=== PATIENT | male | born 1955 | race Caucasian/White ===

== ENCOUNTER 2017-04-19 10:39 | Inpatient (IN) | payer BC ==
[~2017-04-19 10:39] MED LIST: Bisacodyl 5 MG Tab PO PRN; Lactated Ringers 1,000 ML IV SCH; Lidocaine 1%/Sod Bicarbonate in NS 8.4% 1 ML Syringe IV PRN; Magnesium Hydroxide 400 MG/5 ML Susp 30 ML Cup PO PRN; Morphine 2 MG/ML Syringe IVPUSH PRN; Naloxone 0.4 MG/ML SDV IVPUSH PRN; Ondansetron 4 MG/2 ML SDV IVPUSH PRN; Sennosides 8.6 MG Tab PO PRN; Sodium Chloride 0.9% 10 ML Syringe FLUSH PRN
--- NOTE | 2017-04-19 12:57 | PCM.PREANE ---
Preanesthetic Assessment - Procedure Proposed Procedure: Right Total Knee Arthroplasty - Anesthesia/Transfusion/Family Hx Anesthesia History: No Prior Anesthesia Family History of Anesthesia Reaction: No Transfusion History: Prior Transfusion Without Reaction - Review of Systems General: No Symptoms Pulmonary: No Symptoms Cardiovascular: No Symptoms Gastrointestinal: No Symptoms Neurological: No Symptoms Other: Reports: None - Physical Assessment NPO Status Date: 04/18/17 NPO Status Time: 22:00 O2 Sat by Pulse Oximetry: 97 Respiratory Rate: 20 Vital Signs: Last Vital Signs Temp 36.7 C 04/19/17 11:45 Pulse 78 04/19/17 11:45 Resp 20 04/19/17 11:45 BP 140/94 H 04/19/17 11:45 Pulse Ox 97 04/19/17 11:45 Height: 1.78 m Weight: 73.028 kg ASA Class: 2 Mental Status: Alert & Oriented x3 Airway Class: Mallampati = 2 Dentition: Reports: Normal Dentition, Missing Tooth/Teeth (right lower tooth missing ) Thyro-Mental Finger Breadths: 2 Mouth Opening Finger Breadths: 5 ROM/Head Extension: Full Lungs: Clear to Auscultation, Normal Respiratory Effort Cardiovascular: Regular Rate, Regular Rhythm - Lab Values: Laboratory Last Values PT 10.8 SECONDS (8.0-13.0) 04/19/17 12:10 INR 0.99 04/19/17 12:10 MRSA (PCR) Negative 03/31/17 13:43 - Allergies Allergies/Adverse Reactions: Allergies Allergy/AdvReac Type Severity Reaction Status Date / Time No Known Allergies Allergy Verified 04/19/17 12:30 - Blood Blood Available: No - Anesthesia Plan Pre-Op Medication Ordered: None - Acknowledgements Anesthesia Type Planned: Spinal Pt an Appropriate Candidate for the Planned Anesthesia: Yes Alternatives and Risks of Anesthesia Discussed w Pt/Guardian: Yes Pt/Guardian Understands and Agrees with Anesthesia Plan: Yes PreAnesthesia Questionnaire HEENT History: Reports: Other (See Below) Other HEENT History: wears glasses Cardiovascular History: Reports: High Cholesterol, Hypertension Respiratory History: Reports: None Gastrointestinal History: Reports: GERD Genitourinary History: Reports: None 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 Musculoskeletal History: Reports: Osteoarthritis, Other (See Below) Other Musculoskeletal History: joint pain Neurological History: Reports: None Psychiatric History: Reports: None Endocrine/Metabolic History: Reports: None Hematologic History: Reports: Anemia, Blood Transfusion(s), Iron Deficiency Immunologic History: Reports: None Oncologic (Cancer) History: Reports: None Dermatologic History: Reports: None - Past Surgical History Head Surgeries/Procedures: Reports: None Cardiovascular Surgical History: Reports: None Respiratory Surgical History: Reports: None GI Surgical History: Reports: Colonoscopy, EGD Female Surgical History: Reports: None Male Surgical History: Reports: None Endocrine Surgical History: Reports: None Neurological Surgical History: Reports: None Musculoskeletal Surgical History: Reports: Knee Replacement, Other (See Below) Oncologic Surgical History: Reports: None Dermatological Surgical History: Reports: None - SUBSTANCE USE Smoking Status *Q: Former Smoker Recreational Drug Use History: No - HOME MEDS Home Medications: Home Meds Lisinopril 10 mg PO DAILY 05/08/16 [History] Pantoprazole Sodium [Protonix] 40 mg PO DAILY 05/08/16 [History] - CURRENT (IN HOUSE) MEDS Current Meds: Current Medications Bisacodyl (Dulcolax) 5 mg PO DAILY PRN PRN Reason: Constipation Cyclobenzaprine HCl (Flexeril) 10 mg PO TID PRN PRN Reason: Spasms Docusate Sodium (Colace) 100 mg PO BID THAD Famotidine (Pepcid) 20 mg PO Q12H [facility] Lactated Ringer's (Ringers, Lactated) 1,000 mls @ 125 mls/hr IV ASDIRECTED [facility] Last Admin: 04/19/17 12:15 Dose: 125 mls/hr Cefazolin Sodium/Dextrose 2 gm (/ Premix) 50 mls @ 100 mls/hr IV Q8H [facility] Stop: 04/20/17 00:14 Lidocaine/Sodium Bicarbonate (Buffered Lidocaine 1% In Ns 8.4%) 0.25 ml IV ONETIME PRN PRN Reason: Prior to IV Start Last Admin: 04/19/17 12:14 Dose: 0.25 ml Magnesium Hydroxide (Milk Of Magnesia) 30 ml PO BID PRN PRN Reason: Constipation Morphine Sulfate (Morphine) 2 mg IVPUSH Q2H PRN PRN Reason: Breakthrough Pain Naloxone HCl (Narcan) 0.1 mg IVPUSH Q5M PRN PRN Reason: Oversedation Ondansetron HCl (Zofran) 4 mg IVPUSH Q6H PRN PRN Reason: Nausea/Vomiting Oxycodone/Acetaminophen (Percocet 325-5 Mg) 1 - 2 tab PO Q4H PRN PRN Reason: Pain Rivaroxaban (Xarelto) 10 mg PO DAILY THAD Senna (Senna) 8.6 mg PO BID PRN PRN Reason: Constipation Sodium Chloride (Saline Flush) 10 ml FLUSH ASDIRECTED PRN PRN Reason: Keep Vein Open Stop: 04/19/17 18:00 Discontinued Medications Morphine Sulfate 8 mg/Epinephrine HCl 0.3 mg/Cefuroxime Sodium 750 mg/Ketorolac Tromethamine 30 mg/Sodium Chloride 27.9 ml 0 mg .XX ONETIME ONE Stop: 04/19/17 07:22
[2017-04-19] MEDS ORDERED: Lidocaine 1% 4 ML ONE (14:15)
[2017-04-19] MEDS ORDERED: Morphine PF 10 MG/10 ML SDV ONE (14:15)
[2017-04-19] MEDS ORDERED: Midazolam 1 MG/ML 2 ML SDV ONE (14:15)
[2017-04-19] MEDS ORDERED: Propofol 200 MG/20 ML SDV ONE ×3 (14:15→15:44)
[2017-04-19] MEDS ORDERED: Lactated Ringers 1,000 ML ONE ×2 (14:28→15:33)
[2017-04-19] MEDS: Bupivacaine 0.25% 10 ML SDV ONE ×2 (14:59→15:37)
[2017-04-19] MEDS: Morphine 8 MG, EPINEPHrine 0.3 MG, Cefuroxime 750 MG, Ketorolac 30 MG, Sodium Chloride ... ONE ×10 (15:00→15:36)
[2017-04-19] MEDS: ceFAZolin 1 GM Vial ONE ×2 (15:00→15:30)
[2017-04-19] MEDS: Iodine/Sodium Iodide 2% Tincture 30 ML Bottle ONE ×2 (15:00→15:28)
[2017-04-19] MEDS: Vancomycin 1 GM SDV ONE ×2 (15:01→15:35)
[2017-04-19] MEDS ORDERED: ePHEDrine 50 MG/ML SDV ONE (15:08)
--- NOTE | 2017-04-19 16:37 | PCM.POSTAN ---
POST ANESTHESIA ASSESSMENT - MENTAL STATUS Mental Status: Alert - VITAL SIGNS Pulse Rate: 90 SaO2: 97 Resp Rate: 29 Blood Pressure: 113/71 Temperature: 36.4 C - RESPIRATORY Respiratory Status: Respiratory Rate WNL, Airway Patent, O2 Saturation Stable - CARDIOVASCULAR CV Status: Pulse Rate WNL, Blood Pressure Stable - GASTROINTESTINAL GI Status: No Symptoms - PAIN Pain Score: 0 - POST OP HYDRATION Hydration Status: Adequate & Stable
[2017-04-19] MEDS ORDERED: Diphtheria,Pertussis(Acell),Tetanus Vaccine 0.5 ML SDV IM ONE (18:30)
--- NOTE | 2017-04-19 18:48 | CR ---
Right knee: AP and lateral views of the right knee were obtained. Comparison: No prior right knee exam. Knee prosthesis is seen. Components are aligned. Soft tissue air is noted from the surgical procedure. Underlying bony structures appear intact. Impression: 1. Satisfactory postoperative radiographic appearance of recently placed right knee prosthesis. Diagnostic code #2
[2017-04-19] MEDS: ceFAZolin 2 GM in Premix Bag 1 BAG IV SCH (19:47)
[2017-04-19] MEDS: Famotidine 20 MG Tab PO SCH ×2 (21:10→22:01)
[2017-04-19] MEDS: Docusate Sodium 100 MG Cap PO SCH (22:01)
--- NOTE | 2017-04-19 23:04 | PCM.CONS ---
H&P History of Present Illness - General Date of Service: 04/19/17 Admit Problem/Dx: Admission Diagnosis/Problem Admission Diagnosis/Problem Osteoarthritis of knee Source of Information: Patient, Old Records, Provider, RN, Other (surgical notes ) History Limitations: Reports: No Limitations - History of Present Illness Initial Comments - Free Text/Narative: Werner Richmond (Bill) is a 62 yo male patient of Dr. Pascual who is post-operative day 0 of right TKA. Hospital medicine was consulted for post-operative medical care. At this time he is resting comfortably in bed. Pain is controlled and he denies any at this time. He denies any chest pain, shortness of breath, palpitations, nausea, or vomiting. He carries a history of: HLD, HTN, GERD, osteoarthritis, iron deficiency anemia, and prior left TKA. . He is a full code. His primary care provider is Phyllis Santamaria PA-C. Right Anterior Knee Pain Score (Numeric/FACES): 0 - Related Data Allergies/Adverse Reactions: Allergies Allergy/AdvReac Type Severity Reaction Status Date / Time No Known Allergies Allergy Verified 04/19/17 12:30 Home Medications: Home Meds Lisinopril 10 mg PO DAILY 05/08/16 [History] Pantoprazole Sodium [Protonix] 40 mg PO DAILY 05/08/16 [History] Past Medical History HEENT History: Reports: Other (See Below) Other HEENT History: wears glasses Cardiovascular History: Reports: High Cholesterol, Hypertension Respiratory History: Reports: None Gastrointestinal History: Reports: GERD Genitourinary History: Reports: None 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 - Past Surgical History Head Surgeries/Procedures: Reports: None HEENT Surgical History: Reports: None Cardiovascular Surgical History: Reports: None Respiratory Surgical History: Reports: None GI Surgical History: Reports: Colonoscopy, EGD Male Surgical History: Reports: None Endocrine Surgical History: Reports: None Neurological Surgical History: Reports: None Musculoskeletal Surgical History: Reports: Knee Replacement, Other (See Below) Other Musculoskeletal Surgeries/Procedures:: Previous left knee replacement May 2016. Oncologic Surgical History: Reports: None Dermatological Surgical History: Reports: None Social & Family History - Family History Family Medical History: Noncontributory Cardiac: Reports: Hypertension Neurological: Reports: Migraines Other Oncologic Family History: Malignant neoplastic disease - Tobacco Use Smoking Status *Q: Never Smoker Used Tobacco, but Quit: Yes Month Tobacco Last Used: 1989 Second Hand Smoke Exposure: No - Caffeine Use Caffeine Use: Reports: Coffee, Soda - Recreational Drug Use Recreational Drug Use: No Drug Use in Last 12 Months: No H&P Review of Systems - Review of Systems: Review Of Systems: See Below General: Reports: No Symptoms HEENT: Reports: No Symptoms Pulmonary: Reports: No Symptoms Cardiovascular: Reports: No Symptoms Gastrointestinal: Reports: No Symptoms Genitourinary: Reports: No Symptoms Musculoskeletal: Reports: No Symptoms Skin: Reports: No Symptoms Psychiatric: Reports: No Symptoms Neurological: Reports: No Symptoms Hematologic/Lymphatic: Reports: No Symptoms Immunologic: Reports: No Symptoms Review of Systems Comment:: patient reports no concerns at this time. He is denying any knee pain currently. He reports good sensation throughout legs. Exam - Exam Exam: See Below - Vital Signs Vital Signs: Last Vital Signs Temp 97.3 F 04/19/17 18:08 Pulse 61 04/19/17 21:32 Resp 12 04/19/17 18:08 BP 129/72 04/19/17 21:32 Pulse Ox 97 04/19/17 21:32 Weight: 161 lb - Exam Quality Assessment: DVT Prophylaxis General: Alert, Oriented, Cooperative HEENT: Conjunctiva Clear, EACs Clear, EOMI, Hearing Intact, Mucosa Moist & [place] , Nares Patent, Normal Nasal Septum, Posterior Pharynx Clear, PERRLA Neck: Supple, Trachea Midline. No: JVD, Thyromegaly Lungs: Clear to Auscultation, Normal Respiratory Effort Cardiovascular: Regular Rate, Regular Rhythm GI/Abdominal Exam: Normal Bowel Sounds, Soft, Non-Tender, No Organomegaly, No Distention, No Abnormal Bruit, No Mass, Pelvis Stable (Male) Exam: Deferred Rectal (Males) Exam: Deferred Back Exam: Normal Inspection, Full Range of Motion, NT Extremities: No Pedal Edema, Normal Capillary Refill, Other (Garrett bandage around right leg. bandages dry and intact) Peripheral Pulses: 2+: Radial (L), Radial (R), Posterior Tibial (L), Dorsalis Pedis (L) Skin: Warm, Dry, Intact Neurological: Cranial Nerves Intact (grossly) Neuro Extensive - Mental Status: Alert, Oriented x3, Normal Mood/Affect, Normal Cognition, Memory Intact Neuro Extensive - Motor, Sensory, Reflexes: CN II-XII Intact (grossly) Psychiatric: Alert, Normal Affect, Normal Mood - Patient Data Lab Results Last 24 hrs: Laboratory Results - last 24 hr 04/19/17 Range/Units 12:10 PT 10.8 (8.0-13.0) SECONDS INR 0.99 Consult PN Assessment/Plan POD#: 0 Procedures: Procedures ASSAY OF TROPONIN QUANT (05/19/16) COMPLETE CBC W/AUTO DIFF WBC (05/22/16) COMPREHEN METABOLIC PANEL (05/22/16) CREATINE MB FRACTION (05/19/16) ROUTINE VENIPUNCTURE (05/22/16) (1) Status post total knee replacement SNOMED Code(s): 4778922011129, 2661514768734 Code(s): Z96.659 - PRESENCE OF UNSPECIFIED ARTIFICIAL KNEE JOINT Priority: High Current Visit: Yes Qualifiers: Laterality: right Qualified Code(s): Z96.651 - Presence of right artificial knee joint (2) Osteoarthritis SNOMED Code(s): 026245346 Code(s): M19.90 - UNSPECIFIED OSTEOARTHRITIS, UNSPECIFIED SITE Priority: High Current Visit: Yes Qualifiers: Osteoarthritis location: knee Osteoarthritis type: primary Laterality: right Qualified Code(s): M17.11 - Unilateral primary osteoarthritis, right knee (3) HLD (hyperlipidemia) SNOMED Code(s): 26653921 Code(s): E78.5 - HYPERLIPIDEMIA, UNSPECIFIED Priority: Low Current Visit : No Qualifiers: Hyperlipidemia type: unspecified Qualified Code(s): E78.5 - Hyperlipidemia , unspecified (4) Anemia SNOMED Code(s): 629194575 Code(s): D64.9 - ANEMIA, UNSPECIFIED Current Visit: Yes Qualifiers: Anemia type: iron deficiency Iron deficiency anemia type: unspecified iron deficiency Qualified Code(s): D50.9 - Iron deficiency anemia, unspecified (5) GERD (gastroesophageal reflux disease) SNOMED Code(s): 491894074 Code(s): K21.9 - GASTRO-ESOPHAGEAL REFLUX DISEASE WITHOUT ESOPHAGITIS Priority: Low Current Visit: No Qualifiers: Esophagitis presence: esophagitis presence not specified Qualified Code(s) : K21.9 - Gastro-esophageal reflux disease without esophagitis (6) HTN (hypertension) SNOMED Code(s): 28896924 Code(s): I10 - ESSENTIAL (PRIMARY) HYPERTENSION Priority: Low Current Visit: No Qualifiers: Hypertension type: unspecified Qualified Code(s): I10 - Essential (primary ) hypertension Problem List Initiated/Reviewed/Updated: Yes Plan: I/P: Acute: S/P right total knee arthroplasty - post-operative day 0 -DVT prophylaxis and pain management per primary care team -PT/OT -IS/RT -Monitor oxygen saturation -Titrate oxygen as needed -Vital signs stable -Pre-operative Hgb was 14.1 Osteoarthritis of right knee -Pain management per primary care team Chronic: HLD HTN GERD Osteoarthritis Iron deficiency anemia prior left TKA Plan: SW/CM for discharge planning GI prophylaxis Home medications as indicated Other orders as listed above Routine AM labs He is a full code. His PCP is Phyllis Santamaria PA-C here at [facility] Thank you for allowing us to participate in the care of this patient!!
[2017-04-20] MEDS: Acetaminophen/oxyCODONE 325-5 MG Tab PO PRN ×3 (00:21→09:59)
[2017-04-20] MEDS: ceFAZolin 2 GM in Premix Bag 1 BAG IV SCH ×2 (03:16→11:44)
[2017-04-20] MEDS: Cyclobenzaprine 10 MG Tab PO PRN ×2 (03:24→06:46)
[2017-04-20] MEDS ORDERED: Pantoprazole 40 MG Tab.CR PO SCH (07:00)
[2017-04-20] MEDS ORDERED: Rivaroxaban 10 MG Tab PO SCH (09:00)
[2017-04-20] MEDS ORDERED: Lisinopril 10 MG Tab PO SCH (09:00)
[2017-04-20] MEDS: Docusate Sodium 100 MG Cap PO SCH (10:00)
--- NOTE | 2017-04-20 12:19 | PCM.CONSN ---
- General Info Date of Service: 04/20/17 Admission Dx/Problem (Free Text): Admission Diagnosis/Problem Admission Diagnosis/Problem Osteoarthritis of knee POD #1 TKA Doing well, pain controlled Ambulating well with PT Hgb is 10.5 today VSS Functional Status: Reports: Pain Controlled, Tolerating Diet, Ambulating, Urinating, Incentive Spirometry. Denies: New Symptoms - Review of Systems General: Reports: No Symptoms HEENT: Reports: No Symptoms Pulmonary: Reports: No Symptoms Cardiovascular: Reports: No Symptoms Gastrointestinal: Reports: No Symptoms Genitourinary: Reports: No Symptoms Musculoskeletal: Reports: Leg Pain Skin: Reports: No Symptoms Neurological: Reports: No Symptoms Psychiatric: Reports: No Symptoms - Patient Data Vitals - Most Recent: Last Vital Signs Temp 97.9 F 04/20/17 07:50 Pulse 66 04/20/17 07:50 Resp 18 04/20/17 07:50 BP 126/75 04/20/17 10:00 Pulse Ox 96 04/20/17 03:17 Weight - Most Recent: 171 lb 3.2 oz I&O - Last 24 Hours: Intake & Output 04/19/17 04/20/17 04/20/17 22:59 06:59 14:59 Intake Total 460 900 100 Output Total 200 275 Balance 260 625 100 Lab Results Last 24 Hours: Laboratory Results - last 24 hr 04/19/17 04/20/17 04/20/17 Range/Units 12:10 06:33 06:33 WBC 8.99 (4.23-9.07) K/mm3 RBC 3.46 L (4.63-6.08) M/mm3 Hgb 10.5 L (13.7-17.5) gm/L Hct 31.2 L (40.1-51.0) % MCV 90.2 (79.0-92.2) fl MCH 30.3 (25.7-32.2) pg MCHC 33.7 (32.2-35.5) g/dl RDW Std Deviation 39.3 (35.1-43.9) fL Plt Count 175 (163-337) K/mm3 MPV 10.6 (9.4-12.3) fl PT 10.8 (8.0-13.0) SECONDS INR 0.99 Sodium 136 (136-145) mEq/L Potassium 4.1 (3.5-5.1) mEq/L Chloride 103 (98-107) mEq/L Carbon Dioxide 26 (21-32) mEq/L Anion Gap 11.1 (5-15) BUN 13 (7-18) mg/dL Creatinine 0.9 (0.7-1.3) mg/dL Est Cr Clr Drug Dosing 86.74 mL/min Estimated GFR (MDRD) > 60 (>60) mL/min BUN/Creatinine Ratio 14.4 (14-18) Glucose 157 H (80-115) mg/dL Calcium 7.9 L (8.5-10.1) mg/dL Total Bilirubin 0.9 (0.2-1.0) mg/dL AST 22 (15-37) U/L ALT 23 (16-63) U/L Alkaline Phosphatase 39 L (46-116) U/L Total Protein 5.8 L (6.4-8.2) g/dl Albumin 3.0 L (3.4-5.0) g/dl Globulin 2.8 gm/dL Albumin/Globulin Ratio 1.1 (1-2) Med Orders - Current: Current Medications Bisacodyl (Dulcolax) 5 mg PO DAILY PRN PRN Reason: Constipation Cyclobenzaprine HCl (Flexeril) 10 mg PO TID PRN PRN Reason: Spasms Last Admin: 04/20/17 06:46 Dose: 10 mg Docusate Sodium (Colace) 100 mg PO BID REPLACED BY [facility] Last Admin: 04/20/17 10:00 Dose: 100 mg Lisinopril (Prinivil) 10 mg PO DAILY REPLACED BY [facility] Last Admin: 04/20/17 10:00 Dose: 10 mg Magnesium Hydroxide (Milk Of Magnesia) 30 ml PO BID PRN PRN Reason: Constipation Morphine Sulfate (Morphine) 2 mg IVPUSH Q2H PRN PRN Reason: Breakthrough Pain Naloxone HCl (Narcan) 0.1 mg IVPUSH Q5M PRN PRN Reason: Oversedation Ondansetron HCl (Zofran) 4 mg IVPUSH Q6H PRN PRN Reason: Nausea/Vomiting Last Admin: 04/20/17 05:40 Dose: 4 mg Oxycodone/Acetaminophen (Percocet 325-5 Mg) 1 - 2 tab PO Q4H PRN PRN Reason: Pain Last Admin: 04/20/17 09:59 Dose: 2 tab Pantoprazole Sodium (Protonix) 40 mg PO DAILY@0700 REPLACED BY [facility] Last Admin: 04/20/17 06:46 Dose: 40 mg Senna (Senna) 8.6 mg PO BID PRN PRN Reason: Constipation Discontinued Medications Bupivacaine HCl (Sensorcaine-Mpf 0.25%) Confirm Administered Dose 30 ml .ROUTE .STK-MED ONE Stop: 04/19/17 13:02 Last Admin: 04/19/17 15:37 Dose: 30 ml Cefazolin Sodium (Ancef) Confirm Administered Dose 2 gm .ROUTE .STK-MED ONE Stop: 04/19/17 13:02 Last Admin: 04/19/17 15:30 Dose: 2 gm Morphine Sulfate 8 mg/Epinephrine HCl 0.3 mg/Cefuroxime Sodium 750 mg/Ketorolac Tromethamine 30 mg/Sodium Chloride 27.9 ml 0 mg .XX ONETIME ONE Stop: 04/19/17 07:22 Last Admin: 04/19/17 15:36 Dose: 788.3 mg Ephedrine Sulfate (Ephedrine Sulfate) Confirm Administered Dose 50 mg .ROUTE .STK-MED ONE Stop: 04/19/17 15:09 Famotidine (Pepcid) 20 mg PO Q12H REPLACED BY [facility] Last Admin: 04/19/17 22:01 Dose: 20 mg Lactated Ringer's (Ringers, Lactated) 1,000 mls @ 125 mls/hr IV ASDIRECTED REPLACED BY [facility] Last Admin: 04/19/17 12:15 Dose: 125 mls/hr Cefazolin Sodium/Dextrose 2 gm (/ Premix) 50 mls @ 100 mls/hr IV Q8H REPLACED BY [facility] Stop: 04/20/17 11:29 Last Admin: 04/20/17 11:44 Dose: 100 mls/hr Lidocaine HCl (Xylocaine-Mpf 1%) Confirm Administered Dose 4 mls @ as directed .ROUTE .STK-MED ONE Stop: 04/19/17 14:16 Lactated Ringer's (Ringers, Lactated) Confirm Administered Dose 1,000 mls @ as directed .ROUTE .STK-MED ONE Stop: 04/19/17 14:29 Lactated Ringer's (Ringers, Lactated) Confirm Administered Dose 1,000 mls @ as directed .ROUTE .STK-MED ONE Stop: 04/19/17 15:34 Iodine (Iodine 2% Mild Tincture) Confirm Administered Dose 30 ml .ROUTE .STK- MED ONE Stop: 04/19/17 13:03 Last Admin: 04/19/17 15:28 Dose: 30 ml Lidocaine/Sodium Bicarbonate (Buffered Lidocaine 1% In Ns 8.4%) 0.25 ml IV ONETIME PRN PRN Reason: Prior to IV Start Last Admin: 04/19/17 12:14 Dose: 0.25 ml Midazolam HCl (Versed 1 Mg/Ml) Confirm Administered Dose 2 mg .ROUTE .STK-MED ONE Stop: 04/19/17 14:16 Morphine Sulfate (Duramorph Pf) Confirm Administered Dose 10 mg .ROUTE .STK-MED ONE Stop: 04/19/17 14:16 Propofol (Diprivan 20 Ml) Confirm Administered Dose 400 mg .ROUTE .STK-MED ONE Stop: 04/19/17 14:16 Propofol (Diprivan 20 Ml) Confirm Administered Dose 200 mg .ROUTE .STK-MED ONE Stop: 04/19/17 15:22 Propofol (Diprivan 20 Ml) Confirm Administered Dose 200 mg .ROUTE .STK-MED ONE Stop: 04/19/17 15:45 Rivaroxaban (Xarelto) 10 mg PO DAILY THAD Sodium Chloride (Saline Flush) 10 ml FLUSH ASDIRECTED PRN PRN Reason: Keep Vein Open Stop: 04/19/17 18:00 Tranexamic Acid (Cyklokapron) Confirm Administered Dose 1,000 mg .ROUTE .STK- MED ONE Stop: 04/19/17 13:01 Last Admin: 04/19/17 15:38 Dose: 1,000 mg Vancomycin HCl (Vancomycin) Confirm Administered Dose 1 gm .ROUTE .STK-MED ONE Stop: 04/19/17 13:02 Last Admin: 04/19/17 15:35 Dose: 1 gm - Exam Quality Assessment: DVT Prophylaxis General: Alert, Oriented, Cooperative, No Acute Distress HEENT: Pupils Equal, EOMI, Mucous Membr. Moist/[place] Neck: Supple Lungs: Clear to Auscultation, Normal Respiratory Effort Cardiovascular: Regular Rate, Regular Rhythm GI/Abdominal Exam: Normal Bowel Sounds, Soft, Non-Tender (Male) Exam: Deferred Extremities: Other (Teds, SCD, ice to rt knee) Peripheral Pulses: 2+: Dorsalis Pedis (L), Dorsalis Pedis (R) Wound/Incisions: Dressing Dry and Intact Neurological: No New Focal Deficit Psy/Mental Status: Alert, Normal Affect, Normal Mood Consult PN Assessment/Plan POD#: 1 Procedures: Procedures ASSAY OF TROPONIN QUANT (05/19/16) COMPLETE CBC W/AUTO DIFF WBC (05/22/16) COMPREHEN METABOLIC PANEL (05/22/16) CREATINE MB FRACTION (05/19/16) ROUTINE VENIPUNCTURE (05/22/16) (1) Status post total knee replacement SNOMED Code(s): 0476183459426, 2331092544411 Code(s): Z96.659 - PRESENCE OF UNSPECIFIED ARTIFICIAL KNEE JOINT Priority: High Current Visit: Yes Qualifiers: Laterality: right Qualified Code(s): Z96.651 - Presence of right artificial knee joint (2) Osteoarthritis SNOMED Code(s): 818171886 Code(s): M19.90 - UNSPECIFIED OSTEOARTHRITIS, UNSPECIFIED SITE Priority: High Current Visit: Yes Qualifiers: Osteoarthritis location: knee Osteoarthritis type: primary Laterality: right Qualified Code(s): M17.11 - Unilateral primary osteoarthritis, right knee (3) Anemia SNOMED Code(s): 268598809 Code(s): D64.9 - ANEMIA, UNSPECIFIED Priority: Medium Current Visit: Yes Qualifiers: Anemia type: iron deficiency Iron deficiency anemia type: unspecified iron deficiency Qualified Code(s): D50.9 - Iron deficiency anemia, unspecified (4) GERD (gastroesophageal reflux disease) SNOMED Code(s): 799665833 Code(s): K21.9 - GASTRO-ESOPHAGEAL REFLUX DISEASE WITHOUT ESOPHAGITIS Priority: Low Current Visit: No Qualifiers: Esophagitis presence: esophagitis presence not specified Qualified Code(s) : K21.9 - Gastro-esophageal reflux disease without esophagitis (5) HLD (hyperlipidemia) SNOMED Code(s): 80834723 Code(s): E78.5 - HYPERLIPIDEMIA, UNSPECIFIED Priority: Low Current Visit : No Qualifiers: Hyperlipidemia type: unspecified Qualified Code(s): E78.5 - Hyperlipidemia , unspecified (6) HTN (hypertension) SNOMED Code(s): 24529031 Code(s): I10 - ESSENTIAL (PRIMARY) HYPERTENSION Priority: Low Current Visit: No Qualifiers: Hypertension type: unspecified Qualified Code(s): I10 - Essential (primary ) hypertension Problem List Initiated/Reviewed/Updated: Yes Plan: I/P: Acute: S/P right total knee arthroplasty - post-operative day 1 -DVT prophylaxis and pain management per primary care team -PT/OT -IS/RT -Monitor oxygen saturation;-Titrate oxygen as needed -Vital signs stable -Pre-operative Hgb was 14.1; today hgb is 10.5 Osteoarthritis of right knee -Pain management per primary care team Chronic: HLD HTN GERD Osteoarthritis Iron deficiency anemia prior left TKA Plan: SW/CM for discharge planning---OK from Hospitalist standpoint for DC home today ; doing well. GI prophylaxis Home medications as indicated Other orders as listed above Routine AM labs He is a full code. His PCP is Phyllis Santamaria PA-C here at [facility]
[2017-04-20] MEDS ORDERED: Rivaroxaban 10 MG Tab PO ONE (12:29)
[2017-04-20 13:40] VITALS: BP 117/63
--- NOTE | 2017-04-20 13:49 | PCM48HPAN ---
Post Anesthesia Note - EVALUATION WITHIN 48HRS OF ANESTHETIC Vital Signs in Normal Range: Yes Patient Participated in Evaluation: Yes Respiratory Function Stable: Yes Airway Patent: Yes Cardiovascular Function Stable: Yes Hydration Status Stable: Yes Pain Control Satisfactory: Yes Nausea and Vomiting Control Satisfactory: Yes Mental Status Recovered: Yes - COMMENTS/OBSERVATIONS Free Text/Narrative:: Patient resting comfortably. No complications noted.
[2017-04-20] MEDS ORDERED: Diphtheria,Pertussis(Acell),Tetanus Vaccine 0.5 ML SDV IM ONE (15:11)
--- NOTE | 2017-04-22 16:36 | PCM.SURGPN ---
- General Info Date of Service: 04/20/17 POD#: 1 Functional Status: Reports: Pain Controlled, Tolerating Diet, Ambulating, Urinating, Incentive Spirometry, Other (The pt feels prepared for discharge to home.) - Patient Data Vitals - Most Recent: Last Vital Signs Temp 98.4 F 04/20/17 12:46 Pulse 97 04/20/17 12:46 Resp 14 04/20/17 12:46 BP 117/63 04/20/17 12:46 Pulse Ox 94 L 04/20/17 12:46 Weight - Most Recent: 171 lb 3.2 oz Med Orders - Current: Current Medications Discontinued Medications Bisacodyl (Dulcolax) 5 mg PO DAILY PRN PRN Reason: Constipation Bupivacaine HCl (Sensorcaine-Mpf 0.25%) Confirm Administered Dose 30 ml .ROUTE .STK-MED ONE Stop: 04/19/17 13:02 Last Admin: 04/19/17 15:37 Dose: 30 ml Cefazolin Sodium (Ancef) Confirm Administered Dose 2 gm .ROUTE .STK-MED ONE Stop: 04/19/17 13:02 Last Admin: 04/19/17 15:30 Dose: 2 gm Morphine Sulfate 8 mg/Epinephrine HCl 0.3 mg/Cefuroxime Sodium 750 mg/Ketorolac Tromethamine 30 mg/Sodium Chloride 27.9 ml 0 mg .XX ONETIME ONE Stop: 04/19/17 07:22 Last Admin: 04/19/17 15:36 Dose: 788.3 mg Cyclobenzaprine HCl (Flexeril) 10 mg PO TID PRN PRN Reason: Spasms Last Admin: 04/20/17 06:46 Dose: 10 mg Diphtheria/Tetanus/Acell Pertussis (Adacel) 0.5 ml IM .ONCE ONE Stop: 04/20/17 15:12 Docusate Sodium (Colace) 100 mg PO BID THAD Last Admin: 04/20/17 10:00 Dose: 100 mg Ephedrine Sulfate (Ephedrine Sulfate) Confirm Administered Dose 50 mg .ROUTE .STK-MED ONE Stop: 04/19/17 15:09 Famotidine (Pepcid) 20 mg PO Q12H THAD Last Admin: 04/19/17 22:01 Dose: 20 mg Lactated Ringer's (Ringers, Lactated) 1,000 mls @ 125 mls/hr IV ASDIRECTED [facility] Last Admin: 04/19/17 12:15 Dose: 125 mls/hr Cefazolin Sodium/Dextrose 2 gm (/ Premix) 50 mls @ 100 mls/hr IV Q8H [facility] Stop: 04/20/17 11:29 Last Admin: 04/20/17 11:44 Dose: 100 mls/hr Lidocaine HCl (Xylocaine-Mpf 1%) Confirm Administered Dose 4 mls @ as directed .ROUTE .STK-MED ONE Stop: 04/19/17 14:16 Lactated Ringer's (Ringers, Lactated) Confirm Administered Dose 1,000 mls @ as directed .ROUTE .STK-MED ONE Stop: 04/19/17 14:29 Lactated Ringer's (Ringers, Lactated) Confirm Administered Dose 1,000 mls @ as directed .ROUTE .STK-MED ONE Stop: 04/19/17 15:34 Iodine (Iodine 2% Mild Tincture) Confirm Administered Dose 30 ml .ROUTE .STK- MED ONE Stop: 04/19/17 13:03 Last Admin: 04/19/17 15:28 Dose: 30 ml Lidocaine/Sodium Bicarbonate (Buffered Lidocaine 1% In Ns 8.4%) 0.25 ml IV ONETIME PRN PRN Reason: Prior to IV Start Last Admin: 04/19/17 12:14 Dose: 0.25 ml Lisinopril (Prinivil) 10 mg PO DAILY [facility] Last Admin: 04/20/17 10:00 Dose: 10 mg Magnesium Hydroxide (Milk Of Magnesia) 30 ml PO BID PRN PRN Reason: Constipation Midazolam HCl (Versed 1 Mg/Ml) Confirm Administered Dose 2 mg .ROUTE .STK-MED ONE Stop: 04/19/17 14:16 Morphine Sulfate (Morphine) 2 mg IVPUSH Q2H PRN PRN Reason: Breakthrough Pain Morphine Sulfate (Duramorph Pf) Confirm Administered Dose 10 mg .ROUTE .STK-MED ONE Stop: 04/19/17 14:16 Naloxone HCl (Narcan) 0.1 mg IVPUSH Q5M PRN PRN Reason: Oversedation Ondansetron HCl (Zofran) 4 mg IVPUSH Q6H PRN PRN Reason: Nausea/Vomiting Last Admin: 04/20/17 05:40 Dose: 4 mg Oxycodone/Acetaminophen (Percocet 325-5 Mg) 1 - 2 tab PO Q4H PRN PRN Reason: Pain Last Admin: 04/20/17 09:59 Dose: 2 tab Pantoprazole Sodium (Protonix) 40 mg PO DAILY@0700 THAD Last Admin: 04/20/17 06:46 Dose: 40 mg Propofol (Diprivan 20 Ml) Confirm Administered Dose 400 mg .ROUTE .STK-MED ONE Stop: 04/19/17 14:16 Propofol (Diprivan 20 Ml) Confirm Administered Dose 200 mg .ROUTE .STK-MED ONE Stop: 04/19/17 15:22 Propofol (Diprivan 20 Ml) Confirm Administered Dose 200 mg .ROUTE .STK-MED ONE Stop: 04/19/17 15:45 Rivaroxaban (Xarelto) 10 mg PO DAILY [facility] Rivaroxaban (Xarelto) 10 mg PO ONETIME ONE Stop: 04/20/17 12:30 Last Admin: 04/20/17 12:47 Dose: 10 mg Senna (Senna) 8.6 mg PO BID PRN PRN Reason: Constipation Sodium Chloride (Saline Flush) 10 ml FLUSH ASDIRECTED PRN PRN Reason: Keep Vein Open Stop: 04/19/17 18:00 Tranexamic Acid (Cyklokapron) Confirm Administered Dose 1,000 mg .ROUTE .STK- MED ONE Stop: 04/19/17 13:01 Last Admin: 04/19/17 15:38 Dose: 1,000 mg Vancomycin HCl (Vancomycin) Confirm Administered Dose 1 gm .ROUTE .STK-MED ONE Stop: 04/19/17 13:02 Last Admin: 04/19/17 15:35 Dose: 1 gm - Exam Wound/Incisions: Dressing Dry and Intact General: Alert, Cooperative, No Acute Distress Lungs: Normal Respiratory Effort Extremities: Other (NVS intact for BLE. Millie's negative for BLE. Independent SLR RLE.) - Problem List Review Problem List Initiated/Reviewed/Updated: Yes - Assessment Assessment (Free Text/Narrative):: POD#1 - right TKA - Plan Plan (Free Text/Narrative):: 1. Discharge to home today. 2. The pt has met inpatient P.T. goals. 3. Xarelto x 2 wks and then transition to ASA (per PCP instruction). 4. Hgb 10.5. The pt's case was discussed with Dr. Pascual.
--- NOTE | 2017-04-22 16:38 | PCM.DCSUM1 ---
Discharge Summary - Hospital Course Brief History: Werner is a 62 yo male who underwent right TKA with Dr. Pascual on 04-19-2017. The procedure was completed under spinal anesthesia. The pt tolerated the procedure well and was admitted to the Medical-Surgical Unit. Medical management was provided by the Hospitalist service. The pt's Hospital course was uneventful. The pt's Hgb on POD#1 was 10.5. On POD#1, Xarelto 10mg PO daily was initiated for VTE prophylaxis. SCDs and TEDs were also ordered. A Mepilex dressing was placed at the incision site at the time of surgery and remained clean and dry. The pt participated in P.T. and O.T. and progressed well. The pt was allowed to WBAT. On POD#1, the pt was deemed appropriate to discharge to home with his . - Discharge Data Discharge Date: 04/20/17 Discharge Disposition: Home, Self-Care 01 Condition: Good - Patient Summary/Data Consults: Consultations 04/19/17 07:31 Consult to Physician [CONS] Routine OT Evaluation and Treatment [CONS] Routine 04/19/17 07:37 PT Evaluation and Treatment [CONS] Routine - Patient Instructions Diet: Usual Diet as Tolerated Activity: Apply Ice, As Tolerated, Elevate Extremity, Full Weight Bearing Driving: Do Not Drive Showering/Bathing: May Shower Wound/Incision Care: Keep Operative Site/Wound Site Clean and Dry, Do NOT Change Dressing Notify Provider of: Fever, Increased Pain, Swelling and Redness, Drainage, Nausea and/or Vomiting Other/Special Instructions: Please get up and moving around every hour while awake. This helps to prevent blood clots. Also, please use the Xarelto blood thinner medication daily to help limit the risk of blood clots. The Xarelto is for 2 wks and THEN you will transition to ASPIRIN 325mg twice daily (after the 2 wks). Please use your walker and have help with mobility as needed. Please elevate the limb to decrease swelling. Please place ice to the surgical site often. Please use the pain medication as needed. The medication may cause drowsiness and/or constipation. You could use a stool softener like docusate sodium or Colace twice daily and/or a laxative like Miralax for constipation. Please contact your primary care provider for further instructions if you are constipated. Please schedule for P.T. Please leave the dressing in place until follow-up at the Clinic. Please wear the DESHAWN hose. You may remove these at night. Please call the Clinic with questions or concerns - [phone]. - Discharge Plan Prescriptions/Med Rec: Acetaminophen/oxyCODONE [Percocet 325-5 MG] 1 - 2 tab PO Q4H PRN #60 tablet PRN Reason: Pain Cyclobenzaprine [Flexeril] 10 mg PO Q8H PRN #40 tablet PRN Reason: muscle spasms Docusate Sodium [Colace] 100 mg PO BID #30 cap Famotidine [Pepcid] 20 mg PO BID #60 tablet Rivaroxaban [Xarelto] 10 mg PO DAILY #14 tablet Home Medications: Home Meds Lisinopril 10 mg PO DAILY 05/08/16 [History] Pantoprazole Sodium [Protonix] 40 mg PO DAILY 05/08/16 [History] Acetaminophen/oxyCODONE [Percocet 325-5 MG] 1 - 2 tab PO Q4H PRN #60 tablet [Rx] Cyclobenzaprine [Flexeril] 10 mg PO Q8H PRN #40 tablet 04/20/17 [Rx] Docusate Sodium [Colace] 100 mg PO BID #30 cap 04/20/17 [Rx] Famotidine [Pepcid] 20 mg PO BID #60 tablet 04/20/17 [Rx] Rivaroxaban [Xarelto] 10 mg PO DAILY #14 tablet 04/20/17 [Rx] Patient Handouts: Rivaroxaban oral tablets, Total Knee Replacement, Care After , Mpks-up-Helg, Total Knee Replacement, [id number], Knee Rehabilitation Guidelines Following Surgery Referrals: Charlotte Medina PA-C [Physician Laboratory Equipment Cleaner] - (Please see Charlotte Arechiga on Wednesday04/27/17 at 8:30 AM and on Wednesday04/24/17 at 8:30 AM. ) - Patient Data Vitals - Most Recent: Last Vital Signs Temp 98.4 F 04/20/17 12:46 Pulse 97 04/20/17 12:46 Resp 14 04/20/17 12:46 BP 117/63 04/20/17 12:46 Pulse Ox 94 L 04/20/17 12:46 Weight - Most Recent: 171 lb 3.2 oz Med Orders - Current: Current Medications Discontinued Medications Bisacodyl (Dulcolax) 5 mg PO DAILY PRN PRN Reason: Constipation Bupivacaine HCl (Sensorcaine-Mpf 0.25%) Confirm Administered Dose 30 ml .ROUTE .STK-MED ONE Stop: 04/19/17 13:02 Last Admin: 04/19/17 15:37 Dose: 30 ml Cefazolin Sodium (Ancef) Confirm Administered Dose 2 gm .ROUTE .STK-MED ONE Stop: 04/19/17 13:02 Last Admin: 04/19/17 15:30 Dose: 2 gm Morphine Sulfate 8 mg/Epinephrine HCl 0.3 mg/Cefuroxime Sodium 750 mg/Ketorolac Tromethamine 30 mg/Sodium Chloride 27.9 ml 0 mg .XX ONETIME ONE Stop: 04/19/17 07:22 Last Admin: 04/19/17 15:36 Dose: 788.3 mg Cyclobenzaprine HCl (Flexeril) 10 mg PO TID PRN PRN Reason: Spasms Last Admin: 04/20/17 06:46 Dose: 10 mg Diphtheria/Tetanus/Acell Pertussis (Adacel) 0.5 ml IM .ONCE ONE Stop: 04/20/17 15:12 Docusate Sodium (Colace) 100 mg PO BID REPLACED BY [facility] Last Admin: 04/20/17 10:00 Dose: 100 mg Ephedrine Sulfate (Ephedrine Sulfate) Confirm Administered Dose 50 mg .ROUTE .STK-MED ONE Stop: 04/19/17 15:09 Famotidine (Pepcid) 20 mg PO Q12H REPLACED BY [facility] Last Admin: 04/19/17 22:01 Dose: 20 mg Lactated Ringer's (Ringers, Lactated) 1,000 mls @ 125 mls/hr IV ASDIRECTED REPLACED BY [facility] Last Admin: 04/19/17 12:15 Dose: 125 mls/hr Cefazolin Sodium/Dextrose 2 gm (/ Premix) 50 mls @ 100 mls/hr IV Q8H REPLACED BY [facility] Stop: 04/20/17 11:29 Last Admin: 04/20/17 11:44 Dose: 100 mls/hr Lidocaine HCl (Xylocaine-Mpf 1%) Confirm Administered Dose 4 mls @ as directed .ROUTE .STK-MED ONE Stop: 04/19/17 14:16 Lactated Ringer's (Ringers, Lactated) Confirm Administered Dose 1,000 mls @ as directed .ROUTE .STK-MED ONE Stop: 04/19/17 14:29 Lactated Ringer's (Ringers, Lactated) Confirm Administered Dose 1,000 mls @ as directed .ROUTE .STK-MED ONE Stop: 04/19/17 15:34 Iodine (Iodine 2% Mild Tincture) Confirm Administered Dose 30 ml .ROUTE .STK- MED ONE Stop: 04/19/17 13:03 Last Admin: 04/19/17 15:28 Dose: 30 ml Lidocaine/Sodium Bicarbonate (Buffered Lidocaine 1% In Ns 8.4%) 0.25 ml IV ONETIME PRN PRN Reason: Prior to IV Start Last Admin: 04/19/17 12:14 Dose: 0.25 ml Lisinopril (Prinivil) 10 mg PO DAILY REPLACED BY [facility] Last Admin: 04/20/17 10:00 Dose: 10 mg Magnesium Hydroxide (Milk Of Magnesia) 30 ml PO BID PRN PRN Reason: Constipation Midazolam HCl (Versed 1 Mg/Ml) Confirm Administered Dose 2 mg .ROUTE .STK-MED ONE Stop: 04/19/17 14:16 Morphine Sulfate (Morphine) 2 mg IVPUSH Q2H PRN PRN Reason: Breakthrough Pain Morphine Sulfate (Duramorph Pf) Confirm Administered Dose 10 mg .ROUTE .STK-MED ONE Stop: 04/19/17 14:16 Naloxone HCl (Narcan) 0.1 mg IVPUSH Q5M PRN PRN Reason: Oversedation Ondansetron HCl (Zofran) 4 mg IVPUSH Q6H PRN PRN Reason: Nausea/Vomiting Last Admin: 04/20/17 05:40 Dose: 4 mg Oxycodone/Acetaminophen (Percocet 325-5 Mg) 1 - 2 tab PO Q4H PRN PRN Reason: Pain Last Admin: 04/20/17 09:59 Dose: 2 tab Pantoprazole Sodium (Protonix) 40 mg PO DAILY@0700 REPLACED BY [facility] Last Admin: 04/20/17 06:46 Dose: 40 mg Propofol (Diprivan 20 Ml) Confirm Administered Dose 400 mg .ROUTE .STK-MED ONE Stop: 04/19/17 14:16 Propofol (Diprivan 20 Ml) Confirm Administered Dose 200 mg .ROUTE .STK-MED ONE Stop: 04/19/17 15:22 Propofol (Diprivan 20 Ml) Confirm Administered Dose 200 mg .ROUTE .STK-MED ONE Stop: 04/19/17 15:45 Rivaroxaban (Xarelto) 10 mg PO DAILY THAD Rivaroxaban (Xarelto) 10 mg PO ONETIME ONE Stop: 04/20/17 12:30 Last Admin: 04/20/17 12:47 Dose: 10 mg Senna (Senna) 8.6 mg PO BID PRN PRN Reason: Constipation Sodium Chloride (Saline Flush) 10 ml FLUSH ASDIRECTED PRN PRN Reason: Keep Vein Open Stop: 04/19/17 18:00 Tranexamic Acid (Cyklokapron) Confirm Administered Dose 1,000 mg .ROUTE .STK- MED ONE Stop: 04/19/17 13:01 Last Admin: 04/19/17 15:38 Dose: 1,000 mg Vancomycin HCl (Vancomycin) Confirm Administered Dose 1 gm .ROUTE .STK-MED ONE Stop: 04/19/17 13:02 Last Admin: 04/19/17 15:35 Dose: 1 gm *Q Meaningful Use (DIS) - VTE *Q VTE Criteria *Q: - Stroke *Q Stroke Criteria *Q: - AMI *Q AMI Criteria *Q:
--- NOTE | 2017-04-27 11:37 | PCM.OPNOTE ---
- General Post-Op/Procedure Note Date of Surgery/Procedure: 04/19/17 Operative Procedure(s): right total knee artrhoplasty Pre Op Diagnosis: right knee osteoarthrosis Post-Op Diagnosis: Same Anesthesia Technique: Local, MAC, Spinal Primary Surgeon: Mohan Pascual Anesthesia Provider: Yolie Yañez Director Medicare Sales: Charlotte Medina Director Medicare Sales: Capri Jaimes EBL in mLs: 250 Complications: None Condition: Good
--- NOTE | 2017-04-27 13:22 | OR ---
DATE OF OPERATION: 04/19/2017 SURGEON: Mohan Pascual MD OPERATION PERFORMED: Right total knee arthroplasty. PREOPERATIVE DIAGNOSIS: Right knee osteoarthrosis. POSTOPERATIVE DIAGNOSIS: Right knee osteoarthrosis. ANESTHESIA: Local MAC with spinal. ANESTHESIA PROVIDER: Yolie Yañez CRNA. ASSISTANTS: Charlotte Medina PA-C and Capri Jaimes LPN. ESTIMATED BLOOD LOSS: 250 mL. COMPLICATIONS: None. CONDITION: Stable. IMPLANTS: 1. Asbury size 6 press-fit PS femur. 2. Myles size 6 press-fit tibia. 3. Asbury size 6 PS X3 9 mm polyethylene. 4. Asbury press-fit 35 x 10 mm asymmetric patella. DESCRIPTION OF PROCEDURE: The patient was identified in the preop holding area. Proper site was marked and identified by the surgeon. The patient was taken back to the operating theater. After adequate anesthesia, the patient's right lower extremity had a nonsterile tourniquet applied and it was then sterilely prepped and draped in the usual sterile fashion. OR timeout was performed. The patient received 2 g IV Ancef. At this time, right lower extremity was exsanguinated. Tourniquet was insufflated to 300 mmHg. Standard medial parapatellar incision was made. Medial parapatellar arthrotomy was created. Deep fibers of the MCL were raised and anterior fat pad was resected. At this time, attention was turned to the patella. Patella measured 25, it was resected to a 15 for a 35 x 10 mm patella. Drill holes were then drilled and found to be in adequate position. The drill was then drilled in the distal femur and the intramedullary distal femoral cutting guide was then placed. 8 mm was resected off the distal femur and was found to be an adequate resection. Sizing guide was placed. It was found to be a size 6 press-fit PS femur that was shown on the implant record at the beginning of this dictation. The drill holes were drilled for the epicondylar axis using Whitesides line and epicondyles as reference. At this time, the 4-in - 1 cutting block was placed. An anterior posterior and anterior and posterior chamfer cuts were then completed. The correct size box cut was then placed and the box cut was completed and found to be an adequate resection. Attention was turned to the tibia. The posterior medial lateral retractors were placed. The extramedullary tibial guide was placed. It was placed in the old footprint of the ACL. It was aligned with the center of the ankle and 0 degrees of slope, 9 mm was then resected off the unaffected lateral side. There was found to be an acceptable reduction. At this time, posterior osteophytes were removed along with medial and lateral meniscus. A trial implant was placed with a correct sized tibia that was mentioned at the beginning of the dictation. A 9 mm trial spacer was then placed. The patient's knee was brought through range of motion. The patella was tracking centrally and was stable to varus and valgus stress. Alignment was found to be roughly at 0 degrees. At this time, cement was mixed on the back table. The tibia was stamped and drilled in proper rotation. The universal tibial base plate was impacted in place. Next, the size 6 press-fit PS femur was impacted into place and 9 mm trial spacer was placed and then 9 mm PS X3 polyethylene was placed. The patient's knee was brought into full extension. The patella was then press-fit in place at this time. Tourniquet was deflated. One liter dilute Betadine solution was irrigated through the knee along with 3 L of pulse lavage irrigation with Ancef. Periarticular injection was then completed. The patient's knee was brought through a range of motion. It was found to be stable to varus valgus stress, the patella was tracking centrally with full range of motion. At this time, a #2 barbed suture was used for closure of the medial parapatellar arthrotomy. Topical tranexamic acid was placed. 2-0 Vicryl was used subcutaneously, a running 3-0 Monocryl was used subcuticularly. The patient tolerated the procedure well and was sent to the PACU in stable condition. MMODAL /[id number] [place]
== END 2017-04-20 15:38 | disposition home or self-care (01) | DRG 302 ==
LOC: JD.MS 11:38 → JD.OB 14:57 → JD.MS 18:14
PROVIDERS: ADMIT Orthopaedic Surgery; ATTEND Orthopaedic Surgery
PROC: 0SRC06Z Replacement of Right Knee Joint with Oxidized Zirconium on Polyethylene Synthetic Substitute, Open Approach (ICD-10-PCS; principal; 2017-04-19)
DX: M17.11 Unilateral primary osteoarthritis, right knee (principal); E78.5 Hyperlipidemia, unspecified; I10 Essential (primary) hypertension; D50.9 Iron deficiency anemia, unspecified; Z96.652 Presence of left artificial knee joint; K21.9 Gastro-esophageal reflux disease without esophagitis
CPT/HCPCS: 01402; 36415; 73560-26-RT; 73560-RT; 80053; 85027; 85610; 87641; 90471; 94762; 97110-GP; 97116-GP; 97161-GP; 97165-GO; 97535-GO; A9270-GY; C1776; J0171; J0690; J0697; J1885; J2250; J2270; J2405; J2704; J3370; J7120

== ENCOUNTER 2017-04-22 17:45 | Emergency (ER) | payer BC ==
[2017-04-22 17:58] VITALS: BP 133/91
[2017-04-22] MEDS ORDERED: Sodium Chloride 0.9% 10 ML Syringe FLUSH PRN (18:18)
--- NOTE | 2017-04-22 18:21 | EDM.PDOC ---
ED HPI GENERAL MEDICAL PROBLEM - General Chief Complaint: Fever Stated Complaint: FEVER AFTER KNEE SURGERY Time Seen by Provider: 04/22/17 18:07 Source of Information: Reports: Patient History Limitations: Reports: No Limitations - History of Present Illness INITIAL COMMENTS - FREE TEXT/NARRATIVE: Patient is a 62-year-old male presents ED complaining of swollen right calf with worsening pain and increased warmth and redness noted. Patient recently had total right knee replacement this past Wednesday by Dr. Pascual. States he's noticed increased swelling to his right lower leg with worsening pain. Especially noted to his right calf. In addition developed a fever of 101.8 today with some chills. Patient took a Percocet approximately 2:30 with relief of fever. Upon arrival patient has no fever present. Currently patient has no additional complaints. Denies any chest pain, shortness of breath, cough, abdominal pain, pain with urination, or any additional complaints. Patient is on xarelto prophylatically for DVT as well full dose adult ASA. Patient has no history of DVT or PE. Treatments BIOMED TECH: Reports: Other (see below) Other Treatments BIOMED TECH: percocet Right Knee Pain Score (Numeric/FACES): 2 - Related Data Allergies Allergy/AdvReac Type Severity Reaction Status Date / Time No Known Allergies Allergy Verified 04/19/17 12:30 Home Meds: Home Meds Lisinopril 10 mg PO DAILY 05/08/16 [History] Pantoprazole Sodium [Protonix] 40 mg PO DAILY 05/08/16 [History] Acetaminophen/oxyCODONE [Percocet 325-5 MG] 1 - 2 tab PO Q4H PRN #60 tablet [Rx] Cyclobenzaprine [Flexeril] 10 mg PO Q8H PRN #40 tablet 04/20/17 [Rx] Docusate Sodium [Colace] 100 mg PO BID #30 cap 04/20/17 [Rx] Famotidine [Pepcid] 20 mg PO BID #60 tablet 04/20/17 [Rx] Rivaroxaban [Xarelto] 10 mg PO DAILY #14 tablet 04/20/17 [Rx] Past Medical History HEENT History: Reports: Other (See Below) Other HEENT History: wears glasses Cardiovascular History: Reports: High Cholesterol, Hypertension Respiratory History: Reports: None Gastrointestinal History: Reports: GERD Genitourinary History: Reports: None [employer] SAL[employer] History: Reports: None Musculoskeletal History: Reports: Osteoarthritis, Other (See Below) Other Musculoskeletal History: joint pain Neurological History: Reports: None Psychiatric History: Reports: None Endocrine/Metabolic History: Reports: None Hematologic History: Reports: Anemia, Blood Transfusion(s), Iron Deficiency Immunologic History: Reports: None Oncologic (Cancer) History: Reports: None Dermatologic History: Reports: None - Infectious Disease History Other Infectious Disease History: Has has Shingles shot in 2016. - Past Surgical History Head Surgeries/Procedures: Reports: None HEENT Surgical History: Reports: None Cardiovascular Surgical History: Reports: None Respiratory Surgical History: Reports: None GI Surgical History: Reports: Colonoscopy, EGD Male Surgical History: Reports: None Endocrine Surgical History: Reports: None Neurological Surgical History: Reports: None Musculoskeletal Surgical History: Reports: Knee Replacement, Other (See Below) Other Musculoskeletal Surgeries/Procedures:: Previous left knee replacement May 2016. right knee repl;acement on Apr 2017 Oncologic Surgical History: Reports: None Social & Family History - Family History Family Medical History: Noncontributory Cardiac: Reports: Hypertension Neurological: Reports: Migraines Other Oncologic Family History: Malignant neoplastic disease - Tobacco Use Smoking Status *Q: Never Smoker Used Tobacco, but Quit: Yes Month Tobacco Last Used: 1989 Second Hand Smoke Exposure: No - Caffeine Use Caffeine Use: Reports: Coffee, Soda - Recreational Drug Use Recreational Drug Use: No Drug Use in Last 12 Months: No ED ROS GENERAL - Review of Systems Review Of Systems: See Below Constitutional: Reports: Fever, Chills, Malaise, Decreased Appetite HEENT: Reports: No Symptoms Respiratory: Reports: No Symptoms Cardiovascular: Reports: No Symptoms, Other (Unable to palpate posterior tibialis and dorsalis pedis. Doppler signals were obtained were strong and brisk.) GI/Abdominal: Reports: No Symptoms : Reports: No Symptoms Musculoskeletal: Reports: Leg Pain, Joint Pain (Right knee), Joint Swelling ( Right knee) Skin: Reports: Other (Status post total right knee replacement with antibiotic impregnated dressing in place. Ecchymosis, increased redness, increased warmth noted to the right knee most likely secondary to inflammatory process with healing. Increased warmth and swelling noted to the posterior calf with pain on palpation.) Neurological: Reports: No Symptoms ED EXAM, GENERAL - Physical Exam Exam: See Below Exam Limited By: No Limitations General Appearance: Alert, WD/WN, No Apparent Distress Ears: Hearing Grossly Normal Nose: Normal Inspection Throat/Mouth: Normal Voice, No Airway Compromise Neck: Normal Inspection, Supple Respiratory/Chest: No Respiratory Distress, Lungs Clear, Normal Breath Sounds, No Accessory Muscle Use, Chest Non-Tender Cardiovascular: Regular Rate, Rhythm, No Murmur Peripheral Pulses: 2+: Radial (L) GI/Abdominal: Normal Bowel Sounds, Soft, Non-Tender, No Organomegaly, No Distention Extremities: Other (Right knee: Antibiotic-impregnated dressing in place. Ecchymosis, increased swelling, and redness to the knee secondary to inflammatory changes status post total bili replacement. Increased swelling and tenderness to the posterior calf with increased warmth noted. Unable to palpate dorsalis pedis and posterior tibialis pulses. Doppler signals were strong and brisk.) Neurological: Alert, Oriented, CN II-XII Intact, Normal Cognition, No Motor/ Sensory Deficits Psychiatric: Normal Affect, Normal Mood Skin Exam: Warm, Dry Course - Vital Signs Last Recorded V/S: Last Vital Signs Temp 98.3 F 04/22/17 17:56 Pulse 129 H 04/22/17 17:56 Resp 20 04/22/17 17:56 BP 133/91 H 04/22/17 17:56 Pulse Ox 97 04/22/17 17:56 - Orders/Labs/Meds Orders: Active Orders 24 hr Category Date Time Status Peripheral IV Care [RC] . DIRECTED Care 04/22/17 18:18 Active Chest 1V Frontal [CR] Stat Exams 04/22/17 18:18 Taken Peripheral IV Insertion Adult [OM.PC] Stat Oth 04/22/17 18:18 Ordered Labs: Laboratory Tests 04/22/17 04/22/17 04/22/17 Range/Units 18:50 18:50 19:20 WBC 9.95 H (4.23-9.07) K/mm3 RBC 2.97 L (4.63-6.08) M/mm3 Hgb 9.0 L (13.7-17.5) gm/L Hct 27.0 L (40.1-51.0) % MCV 90.9 (79.0-92.2) fl MCH 30.3 (25.7-32.2) pg MCHC 33.3 (32.2-35.5) g/dl RDW Std Deviation 39.6 (35.1-43.9) fL Plt Count 206 (163-337) K/mm3 MPV 10.3 (9.4-12.3) fl Neut % (Auto) 79.8 H (34.0-67.9) % Lymph % (Auto) 11.4 L (21.8-53.1) % Gilchrist % (Auto) 8.0 (5.3-12.2) % Eos % (Auto) 0.5 L (0.8-7.0) Baso % (Auto) 0.2 (0.1-1.2) % Neut # (Auto) 7.94 H (1.78-5.38) K/mm3 Lymph # (Auto) 1.13 L (1.32-3.57) K/mm3 Gilchrist # (Auto) 0.80 (0.30-0.82) K/mm3 Eos # (Auto) 0.05 (0.04-0.54) K/mm3 Baso # (Auto) 0.02 (0.01-0.08) K/mm3 Manual Slide Review Abnormal smear Sodium 137 (136-145) mEq/L Potassium 3.6 (3.5-5.1) mEq/L Chloride 102 (98-107) mEq/L Carbon Dioxide 28 (21-32) mEq/L Anion Gap 10.6 (5-15) BUN 16 (7-18) mg/dL Creatinine 1.0 (0.7-1.3) mg/dL Est Cr Clr Drug Dosing 77.61 mL/min Estimated GFR (MDRD) > 60 (>60) mL/min BUN/Creatinine Ratio 16.0 (14-18) Glucose 127 H (80-115) mg/dL Calcium 8.4 L (8.5-10.1) mg/dL Total Bilirubin 1.0 (0.2-1.0) mg/dL AST 19 (15-37) U/L ALT 16 (16-63) U/L Alkaline Phosphatase 35 L (46-116) U/L C-Reactive Protein 25.0 H* (<1.0) mg/dL Total Protein 6.7 (6.4-8.2) g/dl Albumin 2.8 L (3.4-5.0) g/dl Globulin 3.9 gm/dL Albumin/Globulin Ratio 0.7 L (1-2) Urine Color Yellow (Yellow) Urine Appearance Clear (Clear) Urine pH 7.0 (5.0-8.0) Ur Specific [place] 1.025 (1.005-1.030) Urine Protein 2+ H (Negative) Urine Glucose (UA) Negative (Negative) Urine Ketones 1+ H (Negative) Urine Occult Blood 1+ H (Negative) Urine Nitrite Negative (Negative) Urine Bilirubin 1+ H (Negative) Urine Urobilinogen 0.2 (0.2-1.0) Ur Leukocyte Esterase Negative (Negative) Urine RBC 5-10 H (0-5) /hpf Urine WBC 0-5 (0-5) /hpf Ur Epithelial Cells 0-5 (0-5) /hpf Urine Bacteria Few (FEW) /hpf Urine Mucus Many H (FEW) /hpf Meds: Medications Discontinued Medications Generic Name Dose Route Start Last Admin Trade Name Freq PRN Reason Stop Dose Admin Sodium Chloride 10 ml 04/22/17 18:18 04/22/17 18:50 Saline Flush FLUSH 10 ml ASDIRECTED PRN Administration Keep Vein Open - Re-Assessments/Exams Free Text/Narrative Re-Assessment/Exam: Dr. Pascual did speak with Dr. Ledezma about the patient prior to admission. Dr. Pascual is concerned about DVT. Vital signs are stable. Patient is afebrile. Pain is mild to moderate. Will obtain basic labs including: CBC, chem 14, CRP, chest x-ray, and UA to evaluate for infection. Ultrasound of the right lower extremity will be obtained to rule out DVT. Chest x-ray did not reveal any acute findings. Final interpretation is pending. Labs reviewed: White blood cell count 9.95, hemoglobin 9.0, neutrophil percent is 79.8, neutrophil number is 7.94, sodium 137, potassium 3.6, creatinine 1.0, glucose 127, CRP pending. A few toxic granulations of PMNs. CRP 25.0. 1948 Ultrasound impression: No evidence of deep venous thrombosis is seen within the right lower are within the left common femoral vein. UA pending. 04/22/17 20:19 UA 2+ protein, ketones 1+, occult blood 1+, bilirubin 1+, rbc's 5 -10, mucous many. [address] Pascual and shared results of finding, labs, and studies. No concerns at this point. Will discharge patient home with instructions as documented. Departure - Departure Time of Disposition: 20:23 Disposition: Home, Self-Care 01 Condition: Good Clinical Impression: Fever of unknown origin S/P total knee replacement Qualifiers: Laterality: right Qualified Code(s): Z96.651 - Presence of right artificial knee joint - Discharge Information Instructions: Fever, Adult, [id number] Referrals: Mohan Pascual MD [Physician] - Forms: ED Department Discharge Additional Instructions: As discussed you have no DVT, pneumonia, or infection within your urine. Unclear etiology of recent episode of fever. This may related to pain medications per Dr. Pascual. Continue with plans for physical therapy tomorrow and keep appointment with Dr. Pascual as scheduled. Continue taking all your home medications as prescribed. Return to the ED as needed for any new or worsening symptoms. - My Orders Last 24 Hours: My Active Orders 04/22/17 18:18 Peripheral IV Care [RC] . DIRECTED Chest 1V Frontal [CR] Stat Peripheral IV Insertion Adult [OM.PC] Stat - Assessment/Plan Last 24 Hours: My Active Orders 04/22/17 18:18 Peripheral IV Care [RC] . DIRECTED Chest 1V Frontal [CR] Stat Peripheral IV Insertion Adult [OM.PC] Stat
--- NOTE | 2017-04-22 19:39 | US ---
Right lower extremity deep venous ultrasound: Duplex and color flow imaging was obtained of the right common femoral, proximal greater saphenous, superficial femoral, popliteal, posterior tibial and peroneal veins. Left common femoral vein was also evaluated. Findings: Normal compression, phasic flow and augmentation is seen. Impression: 1. No evidence of deep venous thrombosis is seen within the right lower extremity or within the left common femoral vein. Diagnostic code #1
--- NOTE | 2017-04-23 07:10 | CR ---
Chest: Portable view of the chest was obtained. Comparison: No prior study. Heart size and mediastinum are within normal limits for portable technique. Lungs are clear. Minimal scoliosis is noted within the spine. Impression: 1. Nothing acute is identified on portable chest x-ray. Diagnostic code #1
== END 2017-04-22 20:35 | disposition home or self-care (01) ==
LOC: JD.ED 17:45
DX: R50.9 Fever, unspecified (principal); Z96.651 Presence of right artificial knee joint; I10 Essential (primary) hypertension; E78.00 Pure hypercholesterolemia, unspecified; K21.9 Gastro-esophageal reflux disease without esophagitis; Z87.891 Personal history of nicotine dependence; Z79.899 Other long term (current) drug therapy
CPT/HCPCS: 36415; 71010; 80053; 81001; 85025; 86140; 93971; 99284; J7050

== ENCOUNTER 2022-06-18 07:49 | Day surgery (SDC) | payer MEDICARE, BC ==
[~2022-06-18 07:49] MED LIST changes: -Bisacodyl 5 MG Tab PO PRN; +Lidocaine 1%/Sod Bicarbonate in NS 8.4% 1 ML Syringe IDERM PRN; -Lidocaine 1%/Sod Bicarbonate in NS 8.4% 1 ML Syringe IV PRN; -Magnesium Hydroxide 400 MG/5 ML Susp 30 ML Cup PO PRN; -Morphine 2 MG/ML Syringe IVPUSH PRN; -Naloxone 0.4 MG/ML SDV IVPUSH PRN; -Ondansetron 4 MG/2 ML SDV IVPUSH PRN; -Sennosides 8.6 MG Tab PO PRN; +Sodium Chloride 0.9% 10 ML Syringe FLUSH SCH
[2022-06-18] MEDS ORDERED: Propofol 200 MG/20 ML SDV ONE (08:53)
[2022-06-18] MEDS ORDERED: Lidocaine 1% 6 ML ONE (08:53)
[2022-06-18 10:13] VITALS: BP 144/91; PULSE 63
== END 2022-06-18 10:15 | disposition home or self-care (01) ==
LOC: JD.SDS 07:49
PROVIDERS: ATTEND Surgery
DX: Z12.11 Encounter for screening for malignant neoplasm of colon (principal); K57.30 Diverticulosis of large intestine without perforation or abscess without bleeding; F41.9 Anxiety disorder, unspecified; F32.A Depression, unspecified; K21.9 Gastro-esophageal reflux disease without esophagitis; I10 Essential (primary) hypertension; E78.00 Pure hypercholesterolemia, unspecified; D50.9 Iron deficiency anemia, unspecified; N40.0 Benign prostatic hyperplasia without lower urinary tract symptoms; G47.00 Insomnia, unspecified; D72.829 Elevated white blood cell count, unspecified; F11.20 Opioid dependence, uncomplicated; Z79.899 Other long term (current) drug therapy; Z98.890 Other specified postprocedural states; Z96.653 Presence of artificial knee joint, bilateral
CPT/HCPCS: 45378; J2704; J7120

== ENCOUNTER 2022-06-30 09:51 | Day surgery (SDC) | payer MEDICARE, BC ==
[2022-06-30] MEDS ORDERED: Bupivacaine 0.25% 10 ML SDV ONE (12:04)
[2022-06-30] MEDS ORDERED: Bupivacaine 0.5%/EPINEPHrine 1:200,000 50 ML MDV ONE (12:28)
[2022-06-30] MEDS ORDERED: Lidocaine 1% 30 ML SDV ONE (12:28)
[2022-06-30] MEDS ORDERED: Lidocaine 1% 2 ML ONE (12:28)
[2022-06-30] MEDS ORDERED: Propofol 200 MG/20 ML SDV ONE (12:29)
[2022-06-30] MEDS ORDERED: fentaNYL 100 MCG/2 ML SDV ONE (12:29)
[2022-06-30] MEDS ORDERED: Ondansetron 4 MG/2 ML SDV ONE (13:50)
[2022-06-30] MEDS ORDERED: fentaNYL 100 MCG/2 ML SDV IVPUSH PRN (14:13)
[2022-06-30] MEDS ORDERED: HYDROmorphone 0.5 MG/0.5 ML Syringe IVPUSH PRN (14:13)
[2022-06-30] MEDS ORDERED: Ondansetron 4 MG/2 ML SDV IVPUSH PRN (14:13)
[2022-06-30] MEDS ORDERED: Acetaminophen/HYDROcodone 325-5 MG Tab PO SCH (14:27)
[2022-06-30 14:30] VITALS: PULSE 78
[2022-06-30 15:08] VITALS: BP 167/90
== END 2022-06-30 15:15 | disposition home or self-care (01) ==
LOC: JD.SDS 09:51
PROVIDERS: ATTEND Surgery
DX: R59.0 Localized enlarged lymph nodes (principal); D64.9 Anemia, unspecified; F41.9 Anxiety disorder, unspecified; F32.A Depression, unspecified; K21.9 Gastro-esophageal reflux disease without esophagitis; I10 Essential (primary) hypertension; G47.00 Insomnia, unspecified; F11.20 Opioid dependence, uncomplicated; N40.0 Benign prostatic hyperplasia without lower urinary tract symptoms; M19.90 Unspecified osteoarthritis, unspecified site; E78.00 Pure hypercholesterolemia, unspecified; E03.9 Hypothyroidism, unspecified; Z79.899 Other long term (current) drug therapy; Z98.890 Other specified postprocedural states
CPT/HCPCS: 38510; A9270; J1170; J2405; J2704; J3010; J3490; J7120